=== PATIENT | female | born 1995 | race African-American/Black ===

== ENCOUNTER 2017-02-16 15:15 | Emergency (ER) | payer OTHER ==
[~2017-02-16] VITALS: Ht 170.2 cm; Wt 83.0 kg
[2017-02-17] MEDS ORDERED: IBUPROFEN 600MG TABLET PO ONE (00:15)
[2017-02-17 01:13] VITALS: BP 127/67
== END 2017-02-17 01:13 | disposition home or self-care (01) ==
LOC: ER 22:33
DX: J02.9 Acute pharyngitis, unspecified (principal)
CPT/HCPCS: 99283; Z7610

== ENCOUNTER 2017-05-26 17:20 | Emergency (ER) | payer OTHER ==
[~2017-05-26] VITALS: Ht 170.2 cm; Wt 82.0 kg
[2017-05-26] MEDS ORDERED: ACETAMINOPHEN 500MG TABLET PO ONE (20:15)
[2017-05-26 21:00] VITALS: BP 116/66
== END 2017-05-26 21:16 | disposition home or self-care (01) ==
LOC: ER 19:33
DX: M94.0 Chondrocostal junction syndrome [Tietze] (principal); G44.209 Tension-type headache, unspecified, not intractable; Z90.49 Acquired absence of other specified parts of digestive tract
CPT/HCPCS: 93005; 99283; Z7610

== ENCOUNTER 2017-06-25 14:42 | Emergency (ER) | payer OTHER ==
[~2017-06-25] VITALS: Ht 170.2 cm; Wt 85.0 kg
[2017-06-26] MEDS ORDERED: IBUPROFEN 600MG TABLET PO ONE (00:15)
[2017-06-26 01:04] VITALS: BP 119/83
== END 2017-06-26 01:22 | disposition home or self-care (01) ==
LOC: ER 15:49
DX: M25.571 Pain in right ankle and joints of right foot (principal); F95.2 Tourette's disorder; Z90.89 Acquired absence of other organs
CPT/HCPCS: 73610; 73630; 81025; 99284